=== PATIENT | female | born 1970 | race Caucasian/White ===

== ENCOUNTER 2016-12-17 20:58 | Emergency (ER) | payer SELFPAY ==
[2016-12-17 21:12] VITALS: BP 138/84; PULSE 99; O2SAT 98
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
== END 2016-12-17 21:28 | disposition home or self-care (01) ==
LOC: ED 20:58
DX: F10.920 Alcohol use, unspecified with intoxication, uncomplicated (principal)
CPT/HCPCS: 99282

== ENCOUNTER 2022-07-09 12:28 | Emergency (ER) | payer BC, OTHER ==
--- NOTE | 2022-07-09 12:36 | ERPHSYRPT ---
- History of Present Illness Time Seen by Provider: 07/09/22 12:35 Source: patient Exam Limitations: no limitations Physician History: This a 51-year-old white female who has upper molars that were fractured and she was seen at [facility] yesterday and given a prescription for amoxicillin. Patient was concerned because she had some right facial swelling today. She is not short of breath. She has no difficulty speaking or swallowing or handling her secretions. She has been taking ibuprofen for her pain. Her primary issue is the right facial swelling and not so much pain issue. Timing/Duration: yesterday Quality: painful Severity: mild (Mild right facial swelling) Location: face (Mild right cheek) Possible Causes: other (Fractured tooth, infected tooth) Associated Symptoms: denies symptoms Allergies/Adverse Reactions: No Known Drug Allergies Allergy (Verified 07/09/22 12:41) Home Medications: No Home Meds [No Home Meds] 1 ea UD 12/17/16 [History] Hx Tetanus, Diphtheria Vaccination/Date Given: Yes Hx Influenza Vaccination/Date Given: No Hx Pneumococcal Vaccination/Date Given: No Travel Risk - International Travel Have you traveled outside of the country in past 3 weeks: No - Coronavirus Screening Are you exhibiting any of the following symptoms?: No Close contact with a COVID-19 positive Pt in past 14-21 Days: No - Review of Systems Constitutional: No Symptoms Eyes: No Symptoms Ears, Nose, & Throat: Other (Right upper molar dental pain and fracture with mild facial swelling) Respiratory: No Symptoms Cardiac: No Symptoms Abdominal/Gastrointestinal: No Symptoms Genitourinary Symptoms: No Symptoms Musculoskeletal: No Symptoms Skin: No Symptoms Neurological: No Symptoms Psychological: No Symptoms Endocrine: No Symptoms Hematologic/Lymphatic: No Symptoms Immunological/Allergic: No Symptoms All Other Systems: Reviewed and Negative - Past Surgical History Past Surgical History: Yes Female Surgical History: Section - Social History Smoking Status: Current every day smoker Drug Use: none - Nursing Vital Signs Nursing Vital Signs: Initial Vital Signs Temperature 98.8 F 07/09/22 12:34 Pulse Rate 99 H 07/09/22 12:34 Blood Pressure 172/104 07/09/22 12:34 O2 Sat by Pulse Oximetry 100 07/09/22 12:34 Pain Scale Pain Intensity 8 - Physical Exam General Appearance: no apparent distress, alert, anxiety Eye Exam: PERRL/EOMI, eyes nml inspection Ears, Nose, Throat Exam: moist mucous membranes, other (Right upper molars with fractures and associated infection. There is mild right facial swelling.) Neck Exam: normal inspection, non-tender, supple, full range of motion Respiratory Exam: airway intact, No chest tenderness, No respiratory distress Gastrointestinal/Abdomen Exam: No tenderness Pelvic Exam: not done Rectal Exam: not done Back Exam: normal inspection, normal range of motion, No CVA tenderness, No vertebral tenderness Extremity Exam: normal inspection, normal range of motion, pelvis stable Neurologic Exam: alert, oriented x 3, cooperative, lab analyst II-XII nml as tested, normal mood/affect, nml cerebellar function, nml station & gait, sensation nml Skin Exam: normal color, warm, dry Lymphatic Exam: No adenopathy SpO2 Interpretation: normal O2 Delivery: Room Air - Course Nursing assessment & vital signs reviewed: Yes Ordered Tests: Medication Summary Discontinued Medications Generic Name Dose Route Start Last Admin Trade Name Freq PRN Reason Stop Dose Admin Ceftriaxone Sodium 1,000 mg 07/09/22 12:48 07/09/22 12:56 Ceftriaxone Sodium 1000 Mg Inj Vial IM 07/09/22 12:49 1,000 mg STAT ONE Administration Ceftriaxone Sodium Confirm 07/09/22 12:51 Ceftriaxone Sodium 1000 Mg Inj Vial Administered 07/09/22 12:52 Dose 1,000 mg .ROUTE .STK-MED ONE Lidocaine HCl Confirm 07/09/22 12:51 Lidocaine Hcl 1% 20 Ml Mdv 20 Ml Ml Administered 07/09/22 12:52 Dose 3 ml .ROUTE .STK-MED ONE Methylprednisolone Sodium Succinate 125 mg 07/09/22 12:48 07/09/22 12:56 Methylprednis Sod Succ 125 Mg/2 Ml Vial IM 07/09/22 12:49 125 mg STAT ONE Administration Methylprednisolone Sodium Succinate Confirm 07/09/22 12:50 Methylprednis Sod Succ 125 Mg/2 Ml Vial Administered 07/09/22 12:51 Dose 125 mg .ROUTE .STK-MED ONE Sterile Water Confirm 07/09/22 12:50 Water For Injection,Sterile 10 Ml Vial Administered 07/09/22 12:51 Dose 10 ml IJ .STK-MED ONE - Progress Progress: unchanged Progress Note: 07/09/22 13:05 This patient's medical issue is of low complexity. There is no significant work-up necessary and this is based on the patient's past medical history, history of present illness and physical findings on examination. The patient will receive intramuscular injections of Rocephin and Solu-Medrol 125 mg. Discharge instructions was discussed with the patient and includes continuing Tylenol and ibuprofen for pain and swelling issues, and continue your amoxicillin 3 times a day medication. You need to follow-up with your dentist for definitive care. You may return to the emergency department if symptoms worsen. Counseled pt/family regarding: diagnosis, need for follow-up Medical Desision Making - Discussion of managment Agreed on:: Treatment plan, need for follow-up - Risk of complications Low Risk: Low risk of morbidity from additional dx testing or treatment - Departure Departure Disposition: Home Clinical Impression: Right facial swelling, Infected dental caries, Fractured tooth Condition: Stable Critical Care Time: No Referrals: Provider,Unknown [Primary Care Provider] - Follow up/PCP as directed Additional Instructions: Continue your antibiotics as prescribed. Continue using Tylenol and ibuprofen. Follow-up with your dentist for persistent symptoms and for definitive care.
[2022-07-09] MEDS ORDERED: solu-MEDROL IM ONE (12:48)
[2022-07-09] MEDS ORDERED: Rocephin 1000 MG INJ IM ONE (12:48)
[2022-07-09] MEDS ORDERED: solu-MEDROL ONE (12:50)
[2022-07-09] MEDS ORDERED: Sterile H2O 10 ml IJ ONE (12:50)
[2022-07-09] MEDS ORDERED: Rocephin 1000 MG INJ ONE (12:51)
[2022-07-09] MEDS ORDERED: XYLOCAINE 1% HCL 20 ML MDV ONE (12:51)
[2022-07-09 13:10] VITALS: BP 177/93; PULSE 92; O2SAT 99
== END 2022-07-09 13:15 | disposition home or self-care (01) ==
LOC: ED 12:28
DX: K02.9 Dental caries, unspecified (principal); K04.7 Periapical abscess without sinus; S02.5XXA Fracture of tooth (traumatic), initial encounter for closed fracture; R22.0 Localized swelling, mass and lump, head; Z72.0 Tobacco use
CPT/HCPCS: 96372; 99283; J0696; J2930